=== PATIENT | female | born 1975 | race Caucasian/White ===

== ENCOUNTER 2025-01-02 15:34 | Emergency (ER) | payer BC, SELFPAY ==
[2025-01-02 15:59] VITALS: BP 124/78; PULSE 106; TEMP 37.5; O2SAT 99; BMI 24.2
--- NOTE | 2025-01-02 16:19 | CT_ITS ---
The [address] [address] Patient Name: HUNTER BERNAL MRN: [id number] date: 1975 Sex: F Assigned Patient Location: ER Current Patient Location: ER Accession/Order Number: [id number] Exam Date: 01/02/2025 17:48 Report Date: 01/02/2025 17:52 At the request of: SANTANA LOMAS Procedure: CT abdomen pelvis w con CT abdomen pelvis w con 01/02/2025 5:06 PM SIGNS AND SYMPTOMS: Abdominal pain, left lower quadrant pain TECHNIQUE: Multidetector ct axial images of the abdomen and pelvis were obtained with IV contrast. Multiplanar reformats were performed and reviewed to further define anatomy and possible pathology. CT was performed with one or more of the following dose reduction techniques: Automated exposure control, adjustment of the mA and/or kV according to patient size, or use of iterative reconstruction technique. COMPARISON: None. FINDINGS: Lower Chest: Within normal limits. ABDOMEN: Liver: Hypoattenuating structures are noted in the liver measuring up to 1.4 cm in greatest dimension presumably representing cysts or hemangiomas. Bile Ducts: Normal caliber. Gallbladder: No calcified gallstones. Normal caliber wall. Pancreas: Within normal limits. Spleen: Within normal limits. Adrenals: Within normal limits. Kidneys: There is a simple cyst in the left renal cortex requiring no further follow-up. Pelvis: Reproductive Organs: No pelvic masses. Ureters: Within normal limits. Bladder: Within normal limits. Bowel: There are several colonic diverticula. There is acute diverticulitis at the junction of descending and sigmoid colon with significant adjacent fat stranding. There is no perforation or abscess formation. Free fluid is noted in the left paracolic gutter extending into the left hemipelvis which is presumably reactive. Mesenteric Lymph Nodes: No enlarged mesenteric lymph nodes. Peritoneum: Free fluid is noted in the pelvis. Vessels: Atherosclerotic changes are noted in the abdominal aorta. Retroperitoneum: Within normal limits. Abdominal Wall: Within normal limits. Bones: Within normal limits. CT/CT abdomen pelvis w con IMPRESSION: Acute diverticulitis is noted along the junction of the descending and sigmoid colon. No perforation or abscess formation. Reactive free fluid is noted in the left paracolic gutter and pelvis. Impression dictated by: Jason Veras M.D. 01/02/2025 5:52 PM Dictation Location: [place] [address] Electronically authenticated by: [id number] Y Date: 01/02/2025 17:52
--- NOTE | 2025-01-02 16:21 | ED_ITS ---
HPI - Abdominal Pain General Chief Complaint: Abdominal Pain Stated Complaint: ABDOMINAL PAIN Time Seen by Provider: 01/02/25 16:16 Source: patient Mode of arrival: walk-in Limitations: no limitations History of Present Illness HPI narrative: Patient is a 49-year-old female who presents to the emergency department for increasing left lower quadrant pain. She states for the last week she has had diarrhea, the diarrhea has slowed but she is noticing increasing pain. No fevers or upper respiratory symptoms. She denies any upper abdominal pain. She has had a previous appendectomy. No urinary symptoms. No medications taken prior to arrival. No blood in stool. Related Data Previous Rx's ?Medication ?Instructions ?Recorded ciprofloxacin HCl 500 mg tablet 500 mg PO Q12H #14 tab s 01/02/25 hyoscyamine sulfate 0.125 mg 0.125 mg PO Q6H PRN abdom inal pain 01/02/25 tablet (Levsin) #12 tabs metronidazole 500 mg tablet 500 mg PO Q12H 7 days #14 tabs 01/02/25 ondansetron 4 mg disintegrating 4 mg PO Q6H PRN nausea and 01/02/25 tablet vomiting #12 tabs oxycodone-acetaminophen 5 mg-325 1 tab PO Q6H PRN pain 4 days #15 01/02/25 mg tablet (Percocet) tabs Allergies Allergy/AdvReac Type Severity Reaction Status Date / Time No Known Drug Allergies Allergy Verified 01/02/25 15:58 Review of Systems ROS Constitutional Denies: fever or chills Ears, nose, mouth, and throat Denies: throat pain Cardiovascular Denies: chest pain Respiratory Denies: shortness of breath or cough Gastrointestinal Reports: abdominal pain, nausea and diarrhea; Denies: vomiting Integumentary/Breast Denies: rash Neurological Denies: numbness in extremities or weakness in extremities Hematologic/Lymphatic Denies: easy bruising or easy bleeding PFSH PFSH Social History Little interest or pleasure in doing things: not at all Feeling down, depressed, or hopeless: not at all Exam Narrative Exam Narrative: Gen.: Awake, alert, in no distress Head: Normocephalic, atraumatic ENT: Moist mucous membranes Respiratory: No respiratory distress Gastrointestinal: Abdomen is soft, tender in the left lower quadrant with voluntary guarding, mild tenderness in the right lower quadrant Extremities: Moves extremities equally Psych: Normal mood and affect Neuro: No focal neuro deficit Skin: Warm, dry, intact Constitutional Vital Signs, click to edit/add: Last Vital Signs Temp 99.5 F 01/02/25 15:59 Pulse 106 H 01/02/25 15:59 Resp 14 01/02/25 15:59 BP 124/78 01/02/25 15:59 Pulse Ox 99 01/02/25 15:59 O2 Del Method Room Air 01/02/25 15:59 Course Vital Signs Vital signs: Vital Signs Temperature 99.5 F 01/02/25 15:59 Pulse Rate 106 H 01/02/25 15:59 Respiratory Rate 14 01/02/25 15:59 Blood Pressure 124/78 01/02/25 15:59 Pulse Oximetry 99 01/02/25 15:59 Oxygen Delivery Method Room Air 01/02/25 15:59 Temperature 99.5 F 01/02/25 15:59 Pulse Rate 106 H 01/02/25 15:59 Respiratory Rate 14 01/02/25 15:59 Blood Pressure 124/78 01/02/25 15:59 Pulse Oximetry 99 01/02/25 15:59 Oxygen Delivery Method Room Air 01/02/25 15:59 MDM - Abdominal Pain MDM Narrative Medical decision making narrative: Patient medicated for pain in the ER with improvement. Sleeping comfortably on reevaluation by attending physician. Labs and vitals show leukocytosis but no other evidence of sepsis. CT of the abdomen and pelvis shows diverticulitis. No abscess or perforation noted. Patient was reevaluated by attending physician, she was offered admission for pain control however she prefers outpatient management and was given prescriptions for Cipro, Flagyl, Zofran, Levsin, Percocet. Follow-up with PCP and return to the ER if symptoms change or worsen. Clear liquid diet for 48 hours encouraged. Medical Records Attestation: I reviewed the patient's medical records. Lab Data Attestation: I reviewed the patient's lab results. Labs: Lab Results 01/02/25 01/02/25 01/02/25 Range/Units 16:10 16:30 16:49 WBC 14.7 H (4.0-11.0) 10^3/uL RBC 4.00 L (4.20-5.40) 10^6/uL Hgb 12.5 (12.0-16.0) g/dL Hct 38.6 (36.0-48.0) % MCV 96.5 (81.0-99.0) fL MCH 31.3 (26.7-34.0) pg MCHC 32.4 (29.9-35.2) g/dL RDW 11.9 (11.0-15.0) % Plt Count 305 (150-450) 10^3/uL MPV 9.2 L (9.5-13.5) fL Neut % (Auto) 76.7 H (43.0-75.0) % Lymph % (Auto) 9.3 L (20.5-60.0) % [place] % (Auto) 8.0 (1.7-12.0) % Eos % (Auto) 5.2 (0.9-7.0) % Baso % (Auto) 0.6 (0.2-2.0) % Neut # (Auto) 11.3 H (1.4-6.5) 10^3/uL Lymph # (Auto) 1.4 (1.2-3.8) 10^3/uL [place] # (Auto) 1.2 H (0.3-0.8) 10^3/uL Eos # (Auto) 0.8 H (0.0-0.7) 10^3/uL Baso # (Auto) 0.1 (0.0-0.1) 10^3/uL Abs Immat Gran (auto) 0.03 (0.00-0.03) 10^3/uL Imm/Tot Granulo (auto) 0.2 (0.0-0.5) % Sodium 137 (136-145) mmol/L Potassium 3.7 (3.5-5.1) mmol/L Chloride 102 (98-107) mmol/L Carbon Dioxide 29.2 (21.0-32.0) mmol/L Anion Gap 9.5 BUN 11.0 (7.0-18.0) mg/dL Creatinine 0.53 L (0.55-1.02) mg/dL Est GFR ( Amer) >60 (>=60 mL/min/1.73m^2) Est GFR (Non-Af Amer) >60 (>=60 mL/min/1.73m^2) BUN/Creatinine Ratio 20.8 Glucose 91 (74-106) mg/dL Lactate 0.7 (0.4-2.0) mmol/L Calcium 9.7 (8.5-10.1) mg/dL Total Bilirubin 0.4 (0.2-1.0) mg/dL AST 11 L (15-37) U/L ALT 21 (14-59) U/L Alkaline Phosphatase 70 (46-116) U/L Total Protein 7.5 (6.4-8.2) g/dL Albumin 4.1 (3.4-5.0) g/dL Globulin 3.4 g/dL Albumin/Globulin Ratio 1.2 Lipase 31.0 (16.0-77.0) U/L Urine Color Lt. yellow (YELLOW) Urine Clarity Clear (CLEAR) Urine pH 7.5 (5.0-9.0) Ur Specific [place] 1.015 (1.005-1.025) Urine Protein Negative (NEG/TRACE) mg/dL Urine Glucose (UA) Negative (NEGATIVE) mg/dL Urine Ketones 15 A (NEGATIVE) mg/dL Urine Occult Blood Negative (NEGATIVE) Urine Nitrite Negative (NEGATIVE) Urine Bilirubin Negative (NEGATIVE) Urine Urobilinogen 0.2 (0.2-1.0) EU/dL Ur Leukocyte Esterase Negative (NEGATIVE) Urine HCG, Qual Negative (NEGATIVE) Imaging Data CT scan - abdomen: Attestation: I have reviewed the pertinent imaging results. Radiologist's impression: ITS Impressions Abdomen/Pelvis CT 01/02/25 16:19 IMPRESSION: Acute diverticulitis is noted along the junction of the descending and sigmoid colon. No perforation or abscess formation. Reactive free fluid is noted in the left paracolic gutter and pelvis. Impression dictated by: Jason Veras M.D. 01/02/2025 5:52 PM Dictation [facility] Electronically authenticated by: [id number] Y Date: 01/02/2025 17:52 Discharge Plan Discharge Chief Complaint: Abdominal Pain Clinical Impression: Diverticulitis, Abdominal pain Patient Disposition: Home, Self-Care Time of Disposition Decision: 17:56 Condition: Good Prescriptions / Home Meds: New metronidazole 500 mg tablet 500 mg PO Q12H 7 Days Qty: 14 0RF ciprofloxacin HCl 500 mg tablet 500 mg PO Q12H Qty: 14 0RF oxycodone-acetaminophen [Percocet] 5-325 mg tablet 1 tab PO Q6H PRN (Reason: pain) 4 Days Qty: 15 0RF Rx Instructions: DX: R10.9 hyoscyamine sulfate [Levsin] 0.125 mg tablet 0.125 mg PO Q6H PRN (Reason: abdominal pain) Qty: 12 0RF ondansetron 4 mg tablet,disintegrating 4 mg PO Q6H PRN (Reason: nausea and vomiting) Qty: 12 0RF Print Language: Swedish Instructions: Diverticulitis (ED), Diverticulitis Diet (ED) Referrals: Physician,Non-Staff, MD [Primary Care Provider] - 1 week
[2025-01-02] MEDS: HYDROMORPHONE HCL 1 MG/ML CARTRIDGE IVP (16:40)
[2025-01-02] MEDS: 0.9 % SODIUM CHLORIDE 1,000 ML 1000 ML IV (16:42)
[2025-01-02 16:47] LABS: Hematocrit 38.6 % (36.0-48.0); Hemoglobin 12.5 g/dL (12.0-16.0); Immature Granulocytes Abs Auto 0.03 10^3/uL (0.00-0.03); Immature Granulocytes Pct Auto 0.2 % (0.0-0.5); Lymphocytes Absolute Auto 1.4 10^3/uL (1.2-3.8); Mean Corpuscular HGB Conc 32.4 g/dL (29.9-35.2); Mean Corpuscular Hemoglobin 31.3 pg (26.7-34.0); Mean Corpuscular Volume 96.5 fL (81.0-99.0); Platelet Count 305 10^3/uL (150-450); Red Blood Count 4.00 10^6/uL (4.20-5.40); White Blood Count 14.7 10^3/uL (4.0-11.0)
[2025-01-02 16:48] LABS: Glucose Urine UA NEGATIVE (NEGATIVE)
[2025-01-02 16:50] LABS: HCG Qualitative Urine* NEGATIVE (NEGATIVE)
[2025-01-02 17:05] LABS: Alanine Aminotransferase 21 U/L (14-59); Albumin Globulin Ratio 1.2; Albumin Level 4.1 g/dL (3.4-5.0); Alkaline Phosphatase 70 U/L (46-116); Anion Gap 9.5; Aspartate Amino Transferase 11 U/L (15-37); Blood Urea Nitrogen 11.0 mg/dL (7.0-18.0); Calcium 9.7 mg/dL (8.5-10.1); Carbon Dioxide 29.2 mmol/L (21.0-32.0); Chloride 102 mmol/L (98-107); Estimated GFR (African America >60 (>=60 mL/min/1.73m^2); Estimated GFR (Non-African Ame >60 (>=60 mL/min/1.73m^2); Globulin 3.4 g/dL; Glucose 91 mg/dL (74-106); Potassium 3.7 mmol/L (3.5-5.1); Sodium 137 mmol/L (136-145); Total Protein 7.5 g/dL (6.4-8.2)
[2025-01-02 17:06] LABS: Lipase 31.0 U/L (16.0-77.0)
[2025-01-02 17:13] LABS: Lactate/Lactic Acid 0.7 mmol/L (0.4-2.0)
[2025-01-02] MEDS: METRONIDAZOLE/SODIUM CHLORIDE 500 MG/100 ML PREMIX 100 MG IV (18:21)
[2025-01-02] MEDS: CIPROFLOXACIN IN 5 % DEXTROSE 400 MG/200 ML PREMIX 200 MG IV (19:28)
== END 2025-01-02 20:38 | disposition home or self-care (01) ==
PROVIDERS: Physician Assistant; Emergency Provider Emergency Medicine
DX: K57.32 Diverticulitis of large intestine without perforation or abscess without bleeding (principal); R10.32 Left lower quadrant pain; Z90.49 Acquired absence of other specified parts of digestive tract
CPT/HCPCS: 36415; 74177; 80053; 81003; 83605; 83690; 84703; 85025; 96361; 96365; 96367; 96375; 99285; J0744; J1171; J1836; J2405; Q9967